=== PATIENT | male | born 1955 | race Caucasian/White ===

== ENCOUNTER → 2024-04-07 15:34 | Outpatient (REF) | payer OTHER, SELFPAY | LOC: RAD 15:34 | PROVIDERS: ATTENDING PHYSICIAN Physician Assistant Medical; FAMILY PHYSICIAN Family Medicine | DX: M54.2 Cervicalgia (principal); M89.8X1 Other specified disorders of bone, shoulder; M06.9 Rheumatoid arthritis, unspecified | CPT/HCPCS: 73000; 73030; 73502 ==

== ENCOUNTER 2024-06-14 11:52 | Emergency (ER) | payer OTHER, SELFPAY ==
[2024-06-14 11:56] VITALS: BP 122/75
[2024-06-14 12:00] VITALS: BP 108/72
[2024-06-14 12:03] VITALS: BMI 28.5
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
[2024-06-14 13:17] VITALS: BP 120/69
[2024-06-14] MEDS: ADACEL 0.5 ML IM (14:50)
--- NOTE | 2024-06-14 15:04 | EDRN ---
Reviewed discharge instructions with patient. Verbalized understanding. Ambulated with steady gait to the lobby.
[2024-06-14 15:05] VITALS: BP 122/70
== END 2024-06-14 14:55 | disposition home or self-care (01) ==
LOC: EMR 11:52
PROVIDERS: EMERGENCY PHYSICIAN Emergency Medicine; FAMILY PHYSICIAN Family Medicine
DX: S20.219A Contusion of unspecified front wall of thorax, initial encounter (principal); W19.XXXA Unspecified fall, initial encounter; Y93.55 Activity, bike riding; Z23 Encounter for immunization
CPT/HCPCS: 99283; 90471; 71101; 90715